=== PATIENT | male | born 2000 | race Caucasian/White ===

== ENCOUNTER 2019-08-19 23:40 | Emergency (ER) | payer OTHER ==
[~2019-08-19] VITALS: Ht 177.8 cm; Wt 68.0 kg
[2019-08-19 23:50] VITALS: BP_SYST 127
--- NOTE | 2019-08-19 23:50 | NUR ---
Pt ambulatory to bed 7 for evaluation
--- NOTE | 2019-08-19 23:55 | NUR ---
Patient reports he missed his step onto a curb and fell down hit his chin around 11:30pm. Patient presents with a chin laceration about 3cm that appears to be deep and is actively bleeding. Patient rates his pain 5 out of 10. Patient reports he lost consciousness after he fell and threw up immediately afterward. Patient states he is not nauseous or dizzy at the moment. Patient denies past medical history and allergies to medications. Will continue to monitor.
--- NOTE | 2019-08-20 00:02 | NUR ---
ER Dr. Muhammad at bedside examining patient.
[2019-08-20] MEDS ORDERED: DIPH-TET-PERTUS Vaccine 0.5 ML VIAL (ADACEL) I.M. ONE (00:15)
[2019-08-20] MEDS ORDERED: BACITRACIN 1 GM OINT TP ONE (00:15)
[2019-08-20] MEDS ORDERED: LIDOCAINE/EPI 1% 1:100000 20 ML VIAL INJ ONE (00:15)
--- NOTE | 2019-08-20 00:39 | NUR ---
Patient has a 3.5 cm laceration to chin. Dr. Muhammad applied 5 sutures using sterile technique. Edges well approximated. Site cleansed with proviodine and normal saline. Dressing of gauze applied to site. No bleeding noted. Pt tolerated well.
--- NOTE | 2019-08-20 01:15 | NUR ---
Patient transported to radiology via gurney, accompanied by
[2019-08-20 01:51] VITALS: BP_SYST 126
--- NOTE | 2019-08-20 01:51 | NUR ---
Patient given written and verbal discharge instructions and verbalizes understanding. ER MD discussed with patient the results and treatment provided. Patient in stable condition. ID arm band removed. Rx of Zofran given. Patient educated on pain management and to follow up with PMD. Pain Scale 4/10. Opportunity for questions provided and answered. Medication side effect fact sheet provided.
== END 2019-08-20 01:51 | disposition home or self-care (01) ==
LOC: SED 23:40
DX: S01.81XA Laceration without foreign body of other part of head, initial encounter (principal); F17.200 Nicotine dependence, unspecified, uncomplicated; W31.89XA Contact with other specified machinery, initial encounter; Y93.89 Activity, other specified; Y92.89 Other specified places as the place of occurrence of the external cause; Y99.8 Other external cause status
CPT/HCPCS: 70110-TC; 70450-TC; 90715; 99285